=== PATIENT | female | born 1960 | race Caucasian/White ===

== ENCOUNTER 2018-10-23 23:48 | Inpatient (IN) | payer OTHER ==
[2018-10-24] MEDS ORDERED: Acetaminophen 325 MG TAB PO PRN ×2 (04:11→11:02)
[2018-10-24] MEDS ORDERED: Sodium Chloride 0.45% 1,000 ML IV SCH (04:15)
[2018-10-24] MEDS ORDERED: Piperacillin/Tazobactam 4.5 GM in Sodium Chloride 0.9% 100 ML IVPB SCH (05:00)
[2018-10-24] MEDS ORDERED: Ketorolac Tromethamine 30 MG/ML VIAL IVP SCH (06:00)
[2018-10-24] MEDS ORDERED: Vancomycin HCl 1.25 GM in Sodium Chloride 0.9% 250 ML 250 ML IVPB SCH (06:00)
[2018-10-24 06:06] VITALS: BMI 28.0
[2018-10-24] MEDS ORDERED: Gabapentin 300 MG CAP PO PRN (10:33)
[2018-10-24] MEDS ORDERED: Ondansetron ODT 4 MG TAB PO PRN (11:02)
[2018-10-24] MEDS ORDERED: Senokot S 8.6-50 MG TAB PO PRN (11:02)
[2018-10-24] MEDS ORDERED: Guaifenesin DM 100-10/5 ML UDCUP PO PRN (11:02)
[2018-10-24] MEDS ORDERED: Acetaminophen 650 MG Suppository PR PRN (11:02)
[2018-10-24] MEDS ORDERED: Ondansetron PF 4 MG/2 ML Vial IVP PRN (11:02)
[2018-10-24] MEDS ORDERED: Clopidogrel Bisulfate 75 MG TAB ONE (12:33)
[2018-10-24] MEDS: Piperacillin/Tazobactam 3.375 GM in Sodium Chloride 0.9% 100 ML IVPB SCH ×3 (12:45→23:00)
[2018-10-24] MEDS: Sodium Chloride 0.9% 1,000 ML IV SCH ×2 (12:45→20:52)
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
[2018-10-24] MEDS ORDERED: Dextroamphetamine/Amphetamine [Adderall 20 Mg Tablet] 20 MG PO SCH (17:00)
[2018-10-24] MEDS: Vancomycin HCl 1.25 GM in Sodium Chloride 0.9% 250 ML 250 ML IVPB SCH (17:15)
[2018-10-24] MEDS: Lithium Carbonate 150 MG CAP PO SCH (20:47)
[2018-10-24] MEDS: Famotidine 20 MG TAB PO SCH (20:47)
[2018-10-24] MEDS ORDERED: Vancomycin HCl 1 GM in Premix Bag 1 BAG IVPB SCH (21:00)
[2018-10-24] MEDS: clonazePAM 0.5 MG TAB PO PRN (23:00)
[2018-10-25] MEDS: Sodium Chloride 0.9% 1,000 ML IV SCH ×2 (00:25→12:17)
[2018-10-25] MEDS: Piperacillin/Tazobactam 3.375 GM in Sodium Chloride 0.9% 100 ML IVPB SCH ×4 (06:00→22:30)
[2018-10-25 06:45] LABS: Chloride 108 mmol/L (98-107); Magnesium 2.1 mg/dL (1.6-2.6); Potassium 3.4 mmol/L (3.5-5.1); Sodium 137 mmol/L (136-145)
[2018-10-25 06:54] LABS: Anion Gap 13 mmol/L (10-20); BUN (Urea Nitrogen) 9 mg/dL (9.8-20.1); Calc. Creatinine Clearance 109 mL/min (70-130); Carbon Dioxide 19 mmol/L (22-29); Estimated GFR-MDRD 84; Glucose 83 mg/dL (70-105)
[2018-10-25] MEDS: Vancomycin HCl 1.25 GM in Sodium Chloride 0.9% 250 ML 250 ML IVPB SCH ×3 (07:21→18:14)
[2018-10-25 07:44] LABS: #Eosinphils 0.1 thou/uL (0.0-0.7); #Lymphocytes 1.1 thou/uL (1.20-3.40); #Neutrophils 7.2 thou/uL (1.40-6.50); %Basophils 0.5 % (0.0-1.0); %Eosinophils 1.5 % (0.0-10.0); %Lymphocytes 11.4 % (21.0-51.0); %Monocytes 10.9 % (0.0-10.0); %Neutrophils 75.7 % (42.0-75.0); Hemoglobin 8.7 g/dL (12.0-16.0); Mean Corpuscular HGB CONC 28.3 g/dL (32.0-36.0); Mean Corpuscular Hemoglobin 26.5 pg (27.0-31.0); Mean Corpuscular Volume 93.8 fL (78.0-98.0); Mean Platelet Volume 8.9 fL (7.4-10.4); Platelet Count 129 thou/uL (130-400); Platelet Morphology Comment Appears Decreased; Red Blood Cell (RBC) Count 3.29 mill/uL (4.20-5.40); White Blood Cell (WBC) Count 9.5 thou/uL (4.8-10.8)
--- NOTE | 2018-10-25 08:27 | PDOC.PN ---
- Subjective Encounter Start Date: 10/25/18 Encounter Start Time: 12:00 Subjective: Patient reports some sweats overnight but no fevers/chills. Had -: biopsy done this morning. - Objective Resuscitation Status - Order Detail: 10/24/18 10:59 Resuscitation Status Routine Resuscitation Status: FULL: Full Resuscitation Discussed with: Patient SARTHAK Reviewed: Yes Vital Signs & Weight: Vital Signs (12 hours) Temp Pulse Resp BP Pulse Ox 10/25/18 04:00 97.7 F 77 18 110/72 98 10/25/18 00:00 99.2 F 90 20 122/74 98 Weight Admit Weight 178 lb 12.8 oz Weight 178 lb 12.8 oz I&O: 10/24/18 10/25/18 10/26/18 06:59 06:59 06:59 Intake Total 327 2290 Balance 327 2290 Result Diagrams: 10/25/18 06:12 10/25/18 06:12 Phys Exam - Physical Examination Constitutional: NAD HEENT: moist MMs Respiratory: no wheezing, no rales, no rhonchi Cardiovascular: RRR, no significant murmur Gastrointestinal: soft, non-tender, positive bowel sounds Neurological: non-focal Psychiatric: normal affect, A&O x 3 Dx/Plan (1) Lymphadenitis Code(s): I88.9 - NONSPECIFIC LYMPHADENITIS, UNSPECIFIED Status: Acute Comment: right inguinal region and right pelvis, on Zosyn and Vancomycin since , cultures done in [place], concern for B-cell lymphoma with significant weight loss and night sweats, biposy results pending, appreciate Dr. Canas's assistance (2) Sepsis Code(s): A41.9 - SEPSIS, UNSPECIFIED ORGANISM Status: Resolved (3) HTN (hypertension) Code(s): I10 - ESSENTIAL (PRIMARY) HYPERTENSION Status: Acute (4) Major depression Code(s): F32.9 - MAJOR DEPRESSIVE DISORDER, SINGLE EPISODE, UNSPECIFIED Status : Acute (5) ADD (attention deficit disorder) Code(s): F98.8 - OTH BEHAV/EMOTN DISORD W ONSET USLY OCCUR IN CHLDHD AND ADOL Status: Acute (6) Anemia Code(s): D64.9 - ANEMIA, UNSPECIFIED Status: Acute Comment: normocytic, possibly paraneoplastic (7) Thrombocytopenia Code(s): D69.6 - THROMBOCYTOPENIA, UNSPECIFIED Status: Acute Comment: mild, possibly paraneoplastic - Plan cont current plan of care, continue antibiotics, out of bed/ambulate, DVT proph w/lovenox, DVT proph w/SCDs will need to call [place] for culture results tomorrow * . - Discharge Day Encounter end time: 12:10
[2018-10-25] MEDS ORDERED: Potassium Chloride 20 MEQ TAB PO SCH (08:30)
[2018-10-25] MEDS ORDERED: Bupivacaine/Epinephrine 0.25% 30 ML VIAL ONE (08:32)
[2018-10-25] MEDS ORDERED: Midazolam HCl 2 mg/2 ml Vial ONE ×2 (08:48→09:16)
[2018-10-25] MEDS: Enoxaparin Sodium 40 MG/0.4 ML SYRINGE SC SCH (09:13)
[2018-10-25] MEDS: Famotidine 20 MG TAB PO SCH ×2 (09:13→19:57)
[2018-10-25] MEDS ORDERED: Fentanyl 100 MCG/2 ML VIAL ONE ×2 (09:16→11:31)
[2018-10-25] MEDS ORDERED: Promethazine HCl 25 MG/ML VIAL IM PRN (10:39)
[2018-10-25] MEDS ORDERED: Promethazine HCl 25 MG/ML VIAL SLOW IVP PRN (10:39)
[2018-10-25] MEDS ORDERED: Ondansetron HCl/PF 4 MG/2 ML Vial IVP PRN (10:39)
--- NOTE | 2018-10-25 10:53 | OP ---
DATE OF PROCEDURE: 10/25/2018 PREOPERATIVE DIAGNOSIS: Right inguinal lymphadenopathy. POSTOPERATIVE DIAGNOSIS: Right inguinal lymphadenopathy. PROCEDURE PERFORMED: Excision of enlarged right inguinal lymph node. ANESTHESIA: General. ESTIMATED BLOOD LOSS: Less than 5 mL. FLUIDS GIVEN: 300 mL crystalloids. COUNTS: Sponge and instrument counts were verified as correct x2. COMPLICATIONS: None apparent at the time of operation. INDICATIONS FOR OPERATION: A 58-year-old woman, who was admitted with right inguinal bulge and initially painful mass. This is associated with 25 to 30-pound weight loss over 2 months. The patient was also complaining of night sweats, anorexia, and fatigue. Decision was made to bring the patient to the operating room for excisional biopsy of the right inguinal lymph node. Findings are consistent with right inguinal lymphadenopathy. DESCRIPTION OF PROCEDURE: Informed consent obtained. The patient was brought to the operating room and placed in supine position. Following general anesthesia, right groin sterilely prepped and draped in usual fashion. The right inguinal lymphadenopathy was palpated. Overlying skin was infiltrated with 0.25% Marcaine with epinephrine. An oblique incision was made using 15 scalpel. Incision was carried through subcutaneous tissues maintaining hemostasis using cautery. The large right inguinal node was encountered and dissected free from surrounding structures. Feeder vessels were individually divided between clamps and ligated with a free tie of 3-0 silk. The lymph node was passed off the operative field followed by transmission to pathology. The wound bed was inspected for good hemostasis. Deep tissues were then reapproximated using interrupted sutures of 3-0 Vicryl. Skin incision was closed using a running stitch of 4-0 Monocryl suture in subcuticular fashion. Dermabond was applied over incisional closure. The patient tolerated the procedure without any apparent complication and was returned to recovery room in satisfactory condition. Job ID: [id number]
[2018-10-25] MEDS: DULoxetine 60 MG CAP PO SCH (12:16)
[2018-10-25] MEDS: Losartan 25 MG TAB PO SCH (12:16)
[2018-10-25] MEDS ORDERED: PROPOFOL 200 MG/20 ML VIAL ONE (13:23)
[2018-10-25 18:04] LABS: Vancomycin, Trough 13.5 ug/mL
[2018-10-25] MEDS: Vancomycin HCl 1.5 GM in Sodium Chloride 0.9% 250 ML 300 ML IVPB SCH (18:25)
[2018-10-25] MEDS ORDERED: Clopidogrel Bisulfate 75 MG TAB ONE (19:48)
[2018-10-25] MEDS: Lithium Carbonate 150 MG CAP PO SCH (19:57)
[2018-10-25] MEDS: clonazePAM 0.5 MG TAB PO PRN (19:58)
[2018-10-26] MEDS: Ketorolac Tromethamine 30 MG/ML VIAL IVP PRN ×2 (02:33→17:37)
[2018-10-26] MEDS: Sodium Chloride 0.9% 1,000 ML IV SCH ×2 (02:38→06:05)
[2018-10-26] MEDS: Piperacillin/Tazobactam 3.375 GM in Sodium Chloride 0.9% 100 ML IVPB SCH (06:05)
[2018-10-26 06:22] LABS: Phosphorus 2.8 mg/dL (2.3-4.7)
[2018-10-26 06:27] LABS: Anion Gap 9 mmol/L (10-20); BUN (Urea Nitrogen) 6 mg/dL (9.8-20.1); Calc. Creatinine Clearance 116 mL/min (70-130); Calcium 8.7 mg/dL (7.8-10.44); Carbon Dioxide 25 mmol/L (22-29); Chloride 108 mmol/L (98-107); Estimated GFR-MDRD 90; Glucose 94 mg/dL (70-105); Magnesium 1.8 mg/dL (1.6-2.6); Potassium 3.6 mmol/L (3.5-5.1); Sodium 138 mmol/L (136-145)
--- NOTE | 2018-10-26 07:49 | PDOC.PN ---
- Subjective Encounter Start Date: 10/26/18 Encounter Start Time: 11:00 Subjective: Patient still with some chills. Feels warm today. No fevers overnight. -: No pain. No N/V. - Objective Resuscitation Status - Order Detail: 10/24/18 10:59 Resuscitation Status Routine Resuscitation Status: FULL: Full Resuscitation Discussed with: Chanel DE LEÓN Reviewed: Yes Vital Signs & Weight: Vital Signs (12 hours) Temp Pulse Resp BP Pulse Ox 10/26/18 07:42 98.4 F 74 18 112/70 96 10/26/18 04:00 98.7 F 77 18 108/67 97 10/25/18 23:56 97.7 F 71 18 118/75 98 10/25/18 20:00 99 Weight Admit Weight 178 lb 12.8 oz Weight 178 lb 12.8 oz I&O: 10/25/18 10/26/18 10/27/18 06:59 06:59 06:59 Intake Total 2290 2180 Balance 2290 2180 Result Diagrams: 10/26/18 07:50 10/26/18 05:19 Phys Exam - Physical Examination Constitutional: NAD HEENT: moist MMs Respiratory: no wheezing, no rales, no rhonchi Cardiovascular: RRR, no significant murmur Gastrointestinal: soft, non-tender, positive bowel sounds Neurological: non-focal Psychiatric: normal affect, A&O x 3 Dx/Plan (1) Lymphadenitis Code(s): I88.9 - NONSPECIFIC LYMPHADENITIS, UNSPECIFIED Status: Acute Comment: right inguinal region and right pelvis, on Zosyn and Vancomycin since , changed to oral Augmentin on 10/26/2018, cultures done in [place], concern for B-cell lymphoma with significant weight loss and night sweats, biposy results pending, appreciate Dr. Canas's assistance (2) Sepsis Code(s): A41.9 - SEPSIS, UNSPECIFIED ORGANISM Status: Resolved (3) HTN (hypertension) Code(s): I10 - ESSENTIAL (PRIMARY) HYPERTENSION Status: Chronic Qualifiers: Hypertension type: essential hypertension Qualified Code(s): I10 - Essential (primary) hypertension (4) Major depression Code(s): F32.9 - MAJOR DEPRESSIVE DISORDER, SINGLE EPISODE, UNSPECIFIED Status : Chronic (5) ADD (attention deficit disorder) Code(s): F98.8 - OTH BEHAV/EMOTN DISORD W ONSET USLY OCCUR IN CHLDHD AND ADOL Status: Chronic (6) Anemia Code(s): D64.9 - ANEMIA, UNSPECIFIED Status: Acute Comment: normocytic, possibly paraneoplastic (7) Thrombocytopenia Code(s): D69.6 - THROMBOCYTOPENIA, UNSPECIFIED Status: Acute Comment: mild, possibly paraneoplastic - Plan cont current plan of care, continue antibiotics, out of bed/ambulate, DVT proph w/lovenox, DVT proph w/SCDs * . - Discharge Day Encounter end time: 11:15
[2018-10-26] MEDS: Vancomycin HCl 1.5 GM in Sodium Chloride 0.9% 250 ML 300 ML IVPB SCH ×2 (07:59→09:32)
[2018-10-26 08:09] LABS: #Eosinphils 0.1 thou/uL (0.0-0.7); #Lymphocytes 1.2 thou/uL (1.20-3.40); #Monocytes 0.7 thou/uL (0.11-0.59); #Neutrophils 6.7 thou/uL (1.40-6.50); %Basophils 0.1 % (0.0-1.0); %Lymphocytes 13.3 % (21.0-51.0); %Monocytes 8.5 % (0.0-10.0); %Neutrophils 77.1 % (42.0-75.0); Mean Corpuscular HGB CONC 35.5 g/dL (32.0-36.0); Mean Corpuscular Hemoglobin 32.9 pg (27.0-31.0); Mean Corpuscular Volume 92.8 fL (78.0-98.0); Mean Platelet Volume 8.1 fL (7.4-10.4); Platelet Count 256 thou/uL (130-400); RBC Distribution Width 11.9 % (11.5-14.5); Red Blood Cell (RBC) Count 3.05 mill/uL (4.20-5.40); White Blood Cell (WBC) Count 8.6 thou/uL (4.8-10.8)
[2018-10-26] MEDS: Losartan 25 MG TAB PO SCH (09:37)
[2018-10-26] MEDS: DULoxetine 60 MG CAP PO SCH (09:37)
[2018-10-26] MEDS: Enoxaparin Sodium 40 MG/0.4 ML SYRINGE SC SCH (09:37)
[2018-10-26] MEDS: Famotidine 20 MG TAB PO SCH ×2 (09:38→20:05)
[2018-10-26] MEDS: clonazePAM 0.5 MG TAB PO PRN (13:29)
--- NOTE | 2018-10-26 17:58 | PRG ---
DATE OF SERVICE: 10/26/2018 SUBJECTIVE: The patient is lying in the hospital bed this morning, in no distress. The patient reports no overnight events. The patient is postop day #1, excision of a right inguinal lymph node. Pathology is still pending at this time. The patient is tolerating a regular diet. OBJECTIVE: VITAL SIGNS: Temperature 98.4, pulse 74, respirations 18, SpO2 of 95%, and blood pressure 121/67. GENERAL: No acute distress. The patient is alert and oriented x3. HEENT: Normocephalic and atraumatic. Moist mucous membranes. HEART: Regular rate and rhythm, no pedal edema. LUNGS: Clear bilateral, breathing is regular and nonlabored. ABDOMEN: Soft, nontender, nondistended. NEUROLOGIC: No focal deficits. LABORATORY DATA: WBC 8.6, RBC 3.05, hemoglobin 10.0, hematocrit 28.3, platelets 256. Sodium 138, potassium 3.6, chloride 108, BUN 6, creatinine 0.67, estimated GFR 90, glucose 94, calcium 8.7, phosphorus 2.8, magnesium 1.8. DIAGNOSTICS: There are no diagnostics to review today. IMPRESSION: Postop day #1, excision of right inguinal lymph node, suspicious signs of B cell lymphoma. RECOMMENDATIONS: Can stop IV antibiotics and IV fluids. Pending pathology report. The patient was examined by Dr. Canas during morning rounds. Job ID: [id number]
[2018-10-26] MEDS: Amoxicillin/Potassium Clav 875 MG TAB PO SCH (20:05)
[2018-10-26] MEDS: Lithium Carbonate 150 MG CAP PO SCH (20:06)
[2018-10-27 05:41] LABS: #Eosinphils 0.2 thou/uL (0.0-0.7); #Lymphocytes 1.1 thou/uL (1.20-3.40); #Monocytes 0.8 thou/uL (0.11-0.59); #Neutrophils 5.2 thou/uL (1.40-6.50); %Basophils 0.3 % (0.0-1.0); %Eosinophils 2.3 % (0.0-10.0); %Lymphocytes 14.9 % (21.0-51.0); %Monocytes 10.7 % (0.0-10.0); %Neutrophils 71.7 % (42.0-75.0); Hemoglobin 9.6 g/dL (12.0-16.0); Mean Corpuscular HGB CONC 34.1 g/dL (32.0-36.0); Mean Corpuscular Hemoglobin 31.9 pg (27.0-31.0); Mean Corpuscular Volume 93.6 fL (78.0-98.0); Mean Platelet Volume 8.3 fL (7.4-10.4); Platelet Count 245 thou/uL (130-400); RBC Distribution Width 11.9 % (11.5-14.5); White Blood Cell (WBC) Count 7.2 thou/uL (4.8-10.8)
[2018-10-27 06:04] LABS: Anion Gap 10 mmol/L (10-20); BUN (Urea Nitrogen) Less than 4 mg/dL (9.8-20.1); Calc. Creatinine Clearance 109 mL/min (70-130); Calcium 8.7 mg/dL (7.8-10.44); Carbon Dioxide 25 mmol/L (22-29); Chloride 105 mmol/L (98-107); Estimated GFR-MDRD 84; Glucose 96 mg/dL (70-105); Potassium 3.3 mmol/L (3.5-5.1); Sodium 137 mmol/L (136-145)
[2018-10-27] MEDS ORDERED: Magnesium Sulfate 2 GM, Potassium Chloride 40 MEQ in Sodium Chloride 0.9% 250 ML 250 ML IVPB SCH (08:30)
--- NOTE | 2018-10-27 08:34 | PDOC.PN ---
- Subjective Encounter Start Date: 10/27/18 Encounter Start Time: 12:20 Subjective: Patient feeling much better, especially after heard the lymph node -: biopsy results. No fever. Eating ok. Ready to go home. - Objective Resuscitation Status - Order Detail: 10/24/18 10:59 Resuscitation Status Routine Resuscitation Status: FULL: Full Resuscitation Discussed with: Chanel DE LEÓN Reviewed: Yes Vital Signs & Weight: Vital Signs (12 hours) Temp Pulse Resp BP Pulse Ox 10/27/18 07:42 98.3 F 82 18 116/74 97 10/27/18 04:33 97.9 F 79 16 111/71 97 10/27/18 00:00 98.1 F 80 16 124/72 98 Weight Admit Weight 178 lb 12.8 oz Weight 178 lb 12.8 oz I&O: 10/26/18 10/27/18 10/28/18 06:59 06:59 06:59 Intake Total 2980 2790 Balance 2980 2790 Result Diagrams: 10/27/18 04:54 10/27/18 04:54 Phys Exam - Physical Examination Constitutional: NAD HEENT: moist MMs Respiratory: no wheezing, no rales, no rhonchi Cardiovascular: RRR, no significant murmur Gastrointestinal: soft, non-tender, positive bowel sounds Neurological: non-focal, moves all 4 limbs Psychiatric: normal affect, A&O x 3 Dx/Plan (1) Lymphadenitis Code(s): I88.9 - NONSPECIFIC LYMPHADENITIS, UNSPECIFIED Status: Acute Comment: right inguinal region and right pelvis, on Zosyn and Vancomycin since , changed to oral Augmentin on 10/26/2018, cultures done in [place], lymph node pathology consistent with bacterial infection, no evidence lymphoma (2) Sepsis Code(s): A41.9 - SEPSIS, UNSPECIFIED ORGANISM Status: Resolved (3) HTN (hypertension) Code(s): I10 - ESSENTIAL (PRIMARY) HYPERTENSION Status: Chronic Qualifiers: Hypertension type: essential hypertension Qualified Code(s): I10 - Essential (primary) hypertension (4) Major depression Code(s): F32.9 - MAJOR DEPRESSIVE DISORDER, SINGLE EPISODE, UNSPECIFIED Status : Chronic (5) ADD (attention deficit disorder) Code(s): F98.8 - OTH BEHAV/EMOTN DISORD W ONSET USLY OCCUR IN CHLDHD AND ADOL Status: Chronic (6) Anemia Code(s): D64.9 - ANEMIA, UNSPECIFIED Status: Acute Comment: normocytic, possibly paraneoplastic (7) Thrombocytopenia Code(s): D69.6 - THROMBOCYTOPENIA, UNSPECIFIED Status: Acute Comment: mild, possibly paraneoplastic - Plan cont current plan of care, continue antibiotics d/c home on oral antibiotics. DG panel drawn prior to d/c, PCP can -: follow up on the results. * . - Discharge Day Encounter end time: 12:50
[2018-10-27] MEDS: Enoxaparin Sodium 40 MG/0.4 ML SYRINGE SC SCH (10:00)
[2018-10-27] MEDS: Famotidine 20 MG TAB PO SCH (10:00)
[2018-10-27] MEDS: Losartan 25 MG TAB PO SCH (10:01)
[2018-10-27] MEDS: DULoxetine 60 MG CAP PO SCH (10:01)
[2018-10-27] MEDS: Amoxicillin/Potassium Clav 875 MG TAB PO SCH (10:01)
[2018-10-27] MEDS ORDERED: Potassium Chloride 20 MEQ TAB PO SCH (13:00)
[2018-10-27 15:22] LABS: ANA Symphony (Qualitative) Negative (Negative); ANA Symphony (Quantitative) 0.2 Ratio (< 0.7 Negative); dsDNA IgG Antibody 1.5 IU/mL (<10 Negative)
--- NOTE | 2018-10-27 16:03 | PRG ---
DATE OF SERVICE: 10/27/2018 SUBJECTIVE: The patient is lying in the hospital bed this morning in no acute distress. The patient had no overnight events. The patient is postop day #2 excision of right inguinal lymph node. Pathology report is negative for cancer. The patient continues to tolerate a regular diet. OBJECTIVE: VITAL SIGNS: Temperature 98.3, pulse 82, respirations 18, SpO2 of 97% on room air, and blood pressure 116/74. GENERAL: The patient is awake, alert, in no distress. LUNGS: Clear bilateral, breathing is regular and nonlabored. HEART: Regular rate and rhythm. No pedal edema. ABDOMEN: Soft, nontender, nondistended. NEUROLOGIC: No focal deficits. LABORATORY DATA: WBC 7.2, RBC 3.0, hemoglobin 9.6, hematocrit 28.1, platelets 245. Sodium 137, potassium 3.3, chloride 105, BUN 4, creatinine 0.71, estimated GFR 84, glucose 96, calcium 8.7. DIAGNOSTICS: Pathology report relayed to Dr. Canas, which is negative. IMPRESSION: Postoperative day #2 excision of right inguinal lymph node, noncancerous. RECOMMENDATIONS: The patient can be discharged from a Surgical standpoint. No need to follow up with Surgery or Dr. Canas. The patient was examined by Dr. Canas during morning rounds. Thanks again, for letting us participate in the patient's care. Job ID: [id number]
[2018-10-27 16:11] VITALS: BP 133/84; TEMP 97.7
--- NOTE | 2018-10-28 01:18 | DIS ---
DATE OF ADMISSION: 10/24/2018 DATE OF DISCHARGE: 10/27/2018 PRIMARY CARE PHYSICIAN: Dr. Turner Dixon. REASON FOR ADMISSION: Inguinal lymphadenopathy with fevers, chills, and weight loss. DIAGNOSES AT DISCHARGE: 1. Lymphadenitis. 2. Sepsis, resolved. 3. Hypertension. 4. Major depression. 5. Attention deficit disorder. 6. Normocytic anemia. 7. Mild thrombocytopenia, resolved. PROCEDURES: 1. CT scan of the abdomen and pelvis with IV contrast done in [place] showing inflammatory changes of the right aspect of the pelvis showing into the right inguinal soft tissue without any specific fluid collection, likely infectious process and also with some mild pelvic fluid. 2. Excision of enlarged right inguinal lymph node. CONSULTATIONS: General Surgery, Dr. Canas. PATHOLOGY REPORT: Lymph node biopsy showing reactive lymphadenitis without any atypia or malignancy identified. Consideration for infectious process along with possibility of associated autoimmune disorder such as lupus. SUMMARY OF HOSPITAL COURSE: This is a 58-year-old white female with a history of hypertension and depression, who was transferred from the [place] [facility] for a 2-week history of low-grade fevers and chills, decreased appetite, significant weight loss over the last 2 to 3 months, initially intentional and later on unintentional, about 30 pounds and then feeling very fatigued. She was found to be septic in [place] with tachycardia and elevated white blood cell count. The patient was given antibiotics and transferred here. Initially I believe as there were cultures drawn there, however it appears that they actually did not draw blood cultures prior to antibiotics. The patient was evaluated here. Dr. Canas with General Surgery was consulted. There was concern for possibly a B-cell lymphoma given her fevers, chills, weight loss, and lymphadenopathy, so a lymph node biopsy was done with the above results. The patient improved over the hospitalization with IV antibiotics. She was transitioned to Augmentin, had normal white blood cell count and no fevers and stable vital signs, and so, she is being discharged home. Of note, we did draw a lupus antibody profile prior to her discharge; primary care physician to follow up on in case if there is an autoimmune component to this. DISCHARGE MANAGEMENT: Discharged home. FOLLOWUP: Follow up with Dr. Dixon in 1 to 2 weeks. Follow up on labs and clinical improvement. ACTIVITY: As tolerated. DIET: Regular diet. MEDICATIONS: 1. Augmentin 875 mg twice a day, 24 tabs dispensed. 2. Clonazepam 0.5 mg twice a day as needed. 3. Cymbalta 60 mg daily. 4. Gabapentin 600 mg daily. 5. [place] carbonate 150 mg at night. 6. Losartan 100 mg daily. 7. Adderall 20 mg twice a day. TIME SPENT: Arranging the details of this discharge took 32 minutes. Job ID: [id number]
== END 2018-10-27 16:24 | disposition home or self-care (01) | DRG 855 ==
LOC: ERS 23:48 → T4-B 10-24 02:46
PROVIDERS: ADMIT Internal Medicine; ATTEND Internal Medicine
PROC: 07BH0ZX Excision of Right Inguinal Lymphatic, Open Approach, Diagnostic (ICD-10-PCS; principal; 2018-10-25)
DX: A41.9 Sepsis, unspecified organism (principal); I10 Essential (primary) hypertension; F32.9 Major depressive disorder, single episode, unspecified; F41.9 Anxiety disorder, unspecified; F98.8 Other specified behavioral and emotional disorders with onset usually occurring in childhood and adolescence; D64.9 Anemia, unspecified; I88.9 Nonspecific lymphadenitis, unspecified; D69.6 Thrombocytopenia, unspecified; R63.4 Abnormal weight loss; G25.81 Restless legs syndrome; Z79.899 Other long term (current) drug therapy; Z68.28 Body mass index [BMI] 28.0-28.9, adult
CPT/HCPCS: 36415; 80048; 80202; 83735; 84100; 85025; 86038; 86225; 88184; 88305; 99284; J1650; J1885; J2250; J2543; J2704; J3010; J3370; J3475; J3480; J3490; J7050